=== PATIENT | female | born 1990 | race Caucasian/White ===

== ENCOUNTER 2019-01-28 23:45 | Inpatient (IN) | payer MEDICAID ==
[2019-01-29] MEDS ORDERED: LIDOCAINE 1% (MPF) 30 ML INJ INJ (00:30)
[2019-01-29] MEDS ORDERED: METHYLERGONOVINE 0.2 MG INJ IM ×2 (00:30→17:30)
[2019-01-29] MEDS ORDERED: MISOPROSTOL 200 MCG TAB PR ×2 (00:30→17:30)
[2019-01-29] MEDS ORDERED: OXYTOCIN 30 UNITS/LR 500 ML IV (00:30)
[2019-01-29] MEDS ORDERED: BUTORPHANOL 2 MG INJ IV (00:30)
[2019-01-29] MEDS ORDERED: CARBOPROST 250 MCG INJ IM ×2 (00:30→17:30)
[2019-01-29] MEDS: LACTATED RINGER'S 1,000 ML IV ×3 (01:52→10:45)
[2019-01-29] MEDS: AMPICILLIN 2 GM/NS (PMX) 100 ML IV (01:56)
[2019-01-29 02:07] LABS: ADD MAN DIFF? NO
[2019-01-29 02:13] LABS: BASOPHILS % 0.3 % (0.0-2.0); EOSINOPHILS # 0.2 10^3/ul (0.0-0.5); EOSINOPHILS % 1.9 % (0.0-7.0); HEMATOCRIT 30.5 % (37.0-47.0); HEMOGLOBIN 9.4 g/dl (12.0-16.0); LYMPHOCYTES # 1.6 10^3/ul (0.8-2.9); LYMPHOCYTES % 13.2 % (15.0-51.0); MEAN CORPUSCULAR HEMOGLOBIN 22.4 pg (29.0-33.0); MEAN CORPUSCULAR HGB CONC 30.8 g/dl (32.0-37.0); MEAN CORPUSCULAR VOLUME 72.8 fl (82.0-101.0); MEAN PLATELET VOLUME 9.9 fl (7.4-10.4); MONOCYTE # 0.8 10^3/ul (0.3-0.9); MONOCYTES % 6.7 % (0.0-11.0); NEUTROPHIL # 9.5 10^3/ul (1.6-7.5); NEUTROPHILS % 76.9 % (39.0-77.0); PLATELET COUNT 293 10^3/UL (140-415); RED BLOOD COUNT 4.19 10^6/ul (4.20-5.40); RED CELL DISTRIBUTION WIDTH 15.9 % (11.5-14.5)
[2019-01-29 02:13] LABS: WHITE BLOOD COUNT 12.4 10^3/ul (4.8-10.8)
[2019-01-29 02:32] LABS: INR 0.98; PARTIAL THROMBOPLASTIN TIME 26.3 Sec (23.0-35.0); PROTIME 13.1 Sec (11.9-14.9)
[2019-01-29 02:37] LABS: AMPHETAMINE/METHAMPHETAMINE Negative (NEGATIVE); BARBITURATES Negative (NEGATIVE); BENZODIAZEPINES Negative (NEGATIVE); CANNABINOIDS Negative (NEGATIVE); COCAINE Negative (NEGATIVE); OPIATES Negative (NEGATIVE)
[2019-01-29 03:38] LABS: HEPATITIS B SURFACE ANTIGEN NEGATIVE (NEGATIVE)
[2019-01-29] MEDS ORDERED: FENTAnyl 2MCG/ML-ROPIV 0.2% 100 ML (06:04)
[2019-01-29] MEDS ORDERED: NALOXONE (0.4 MG/ML) INJ IV (06:30)
[2019-01-29] MEDS: FENTAnyl 2MCG/ML-ROPIV 0.2% 100 ML BAG EPI (06:33)
[2019-01-29] MEDS: AMPICILLIN 1 GM/NS (PMX) 50 ML IV (06:34)
[2019-01-29] MEDS: OXYTOCIN 30 UNITS/LR 500 ML IV ×4 (06:41→20:06)
[2019-01-29] MEDS: MINERAL OIL LIGHT 10 ML VIAL TOP (10:00)
[2019-01-29] MEDS: IBUPROFEN 600 MG TAB PO ×2 (16:54→18:00)
[2019-01-29] MEDS ORDERED: ZOLPIDEM 5 MG TAB PO (17:30)
[2019-01-29] MEDS ORDERED: OXYCODONE/ASPIRIN (4.88/325) TAB PO ×2 (17:30)
[2019-01-29 20:01] LABS: RAPID PLASMA REAGIN NONREACTIVE (NR)
[2019-01-29] MEDS: LANOLIN HPA 1 PKT TOP (21:10)
[2019-01-29] MEDS: BENZOCAINE 20% 56 ML SPRAY TOP (21:10)
[2019-01-29] MEDS: WITCH HAZEL/GLYCERIN PAD PR (21:10)
[2019-01-29] MEDS: SENNA/DOCUSATE NA (8.6MG/50MG) TAB PO (21:10)
[2019-01-30] MEDS: IBUPROFEN 600 MG TAB PO ×4 (00:13→17:36)
[2019-01-30 08:34] LABS: ADD MAN DIFF? NO
[2019-01-30 08:36] LABS: BASOPHILS % 0.2 % (0.0-2.0); EOSINOPHILS # 0.2 10^3/ul (0.0-0.5); EOSINOPHILS % 1.2 % (0.0-7.0); HEMOGLOBIN 8.1 g/dl (12.0-16.0); LYMPHOCYTES # 2.2 10^3/ul (0.8-2.9); LYMPHOCYTES % 15.2 % (15.0-51.0); MEAN CORPUSCULAR HEMOGLOBIN 22.8 pg (29.0-33.0); MEAN CORPUSCULAR HGB CONC 31.2 g/dl (32.0-37.0); MEAN CORPUSCULAR VOLUME 73.2 fl (82.0-101.0); MEAN PLATELET VOLUME 10.2 fl (7.4-10.4); MONOCYTE # 0.9 10^3/ul (0.3-0.9); MONOCYTES % 6.4 % (0.0-11.0); NEUTROPHIL # 10.8 10^3/ul (1.6-7.5); NEUTROPHILS % 75.9 % (39.0-77.0); PLATELET COUNT 213 10^3/UL (140-415); RED BLOOD COUNT 3.55 10^6/ul (4.20-5.40); RED CELL DISTRIBUTION WIDTH 15.8 % (11.5-14.5)
[2019-01-30 08:36] LABS: WHITE BLOOD COUNT 14.3 10^3/ul (4.8-10.8)
[2019-01-30] MEDS: SENNA/DOCUSATE NA (8.6MG/50MG) TAB PO ×2 (10:00→21:08)
[2019-01-30 13:42] LABS: RUBELLA ANTIBODY - IGM <20.00 AU/mL
[2019-01-30 20:47] LABS: RUBELLA ANTIBODY - IGG 0.98 index
[2019-01-31] MEDS: IBUPROFEN 600 MG TAB PO ×3 (00:08→11:26)
[2019-01-31] MEDS: SENNA/DOCUSATE NA (8.6MG/50MG) TAB PO (09:00)
[2019-01-31] MEDS: DIPHTH/TET/ACEL PERTUSS (ADULT) 0.5 ML VIAL IM* (09:43)
== END 2019-01-31 15:00 | disposition home or self-care (01) | DRG 807 ==
LOC: L-D 23:45 → OBT 23:45 → L-D 01-29 00:27 → PP1 01-29 17:43
PROC: 10E0XZZ Delivery of Products of Conception, External Approach (ICD-10-PCS; principal; 2019-01-29)
DX: O99.02 Anemia complicating childbirth (principal); Z37.0 Single live birth; Z3A.39 39 weeks gestation of pregnancy; D50.9 Iron deficiency anemia, unspecified
CPT/HCPCS: 62322; 76815; 80307; 85025; 85610; 85730; 86592; 86762; 86850; 86900; 86901; 87340; 99464